=== PATIENT | female | born 1965 | race Caucasian/White ===

== ENCOUNTER 2021-04-15 11:40 | Emergency (ER) | payer SELFPAY ==
[2021-04-15 11:47] VITALS: BP 124/79; PULSE 105; RESP 16; TEMP 36.7; O2SAT 96; BMI 18.3
--- NOTE | 2021-04-15 12:07 | CT_ITS ---
WS: [id number] CT ABDOMEN AND PELVIS WITH CONTRAST HISTORY: eval RLQ abd pain TECHNIQUE: Imaging performed of the abdomen and pelvis with IV contrast. Single phase imaging of the abdomen. Coronal and sagittal reformats are submitted. All CT scans at [facility] use at [address] one of these dose optimization techniques: automated exposure control; mA and/or kV adjustment per patient size (includes targeted exams where dose is matched to clinical indication); or iterative re construction. IV CONTRAST: Omnipaque 300; 95 mL IV. Oral contrast: No DLP: 723.27 mGy.cm COMPARISON: None available. Lower thorax: Lung bases are clear. Heart is normal size. No hiatal hernia. Liver/biliary system: Normal size with no intrahepatic dilatation. Gallbladder: Normal. No gallstones or wall thickening. No pericholecystic fluid. Pancreas: Normal size pancreas and pancreatic duct. No adjacent inflammation. Spleen: Normal size spleen. No mass or infarct. Adrenal glands: Normal. Right kidney: Normal. Left kidney: Normal. Aorta: Mild atherosclerosis with no aneurysm. Calcifications extend into the common iliac arteries bi laterally. Lymphadenopathy: None. Free fluid: None. GI tract: Normal. Marked distention of the stomach with fluid and a small amount of air. Very mild hy peremia and dilatation of the proximal small bowel. No obstruction. Abdominal wall: Unremarkable abdominal wall. No hernia. Pelvis: Nondistended urinary bladder. No free fluid or adenopathy in the pelvis. Bones: Unremarkable. CT/CT abdomen pelvis w con* [id number] IMPRESSION: 1. Normal appendix. 2. Marked fluid distention of the stomach with mild increased fluid in the pro ximal small bowel with mucosal thickening. Consider very mild gastroenteritis. 3. No GI tract obstruction. 4. No renal obstruction.
[2021-04-15 12:35] LABS: Hematocrit 48.4 % (37.0-47.0); Hemoglobin 16.5 g/dL (11.5-15.3); Mean Corpuscular HGB Conc 34.1 g/dL (30.0-36.0); Mean Corpuscular Hemoglobin 32.3 pg (28.0-34.0); Mean Corpuscular Volume 94.7 fl (81-99); Mean Platelet Volume 9.3 fL (7.4-10.4); Platelet Count 352 10^3/cmm (130-400); Red Blood Count 5.11 10^6/uL (4.1-5.3); White Blood Count 10.1 10^3/uL (4.0-10.0)
[2021-04-15] MEDS: iohexol 300 mg/mL 100 mL Btl IV (12:40)
--- NOTE | 2021-04-15 12:42 | ED_ITS ---
HPI - General Adult General: Chief complaint: Abdominal Pain Stated complaint: pcp sent over w/blood count 18 Time Seen by Provider: 04/15/21 11:51 History of Present Illness: HPI narrative: Patient is 55-year-old female with history of hysterectomy presents emergency room with 1 week of worsening right lower quadrant and right flank pain. Patient went to see her primary care provider today and was found to have a white count of 18 and was told to go to the emergency room. Patient denies any history of kidney stones, dysuria, hematuria, polyuria. No new vaginal discharge or vaginal bleeding. Patient denies any nausea vomiting, decreased p.o. intake, melena or hematochezia. She has reported intermittent loose stool but denies any antibiotic use, recent travels. Onset: 1 week and 3 days ago Duration:10 days Location:home Severity: moderate Review of Systems Narrative: Constitutional: No fever, no chills. HEENT: No vision changes CV: No chest pain, no palpitations PULM: no cough, no dyspnea. GI: +R flank/RLQ abdominal pain, no N/V/D. : No dysuria MSKEL: No muscle pain SKIN: No new rashes, no lesions. NEURO: No headache, no focal weakness. HEME: No visible bruises PSYCH: Normal mood Physical Exam Narrative: EXAM NARRATIVE: Head: Atraumatic Eyes: PERRL, conjunctiva without injection ENT: Mucous membrane moist NECK: Supple, ROM intact LUNGS: LCTAB, no crackles/rhonchi CV: RRR ABDOMEN: Soft, + moderateR flank and RLQ tenderness to palpation. NO guarding rebound, guarding, rigidity. +R CVA tenderness to percussion. Neg Lopez/Neg McBurney's point tenderness, no suprabupic tenderness to palpation. EXTREMITY: Normal ROM SKIN: No rash or erythema NEURO: Awake and alert, no focal motor deficits PSYCH: Normal mood and affect Course Vital Signs: Vital signs: Vital Signs Temperature 98.1 F 04/15/21 11:47 Pulse Rate 95 04/15/21 12:52 Respiratory Rate 16 04/15/21 11:47 Blood Pressure 131/72 04/15/21 12:52 Pulse Oximetry 97 04/15/21 12:52 MDM - General Adult MDM Narrative: Medical decision making narrative: 55-year-old female presents emergency room for evaluation of leukocytosis, right-sided flank pain right lower quadrant dull pain on exam, has mild tenderness to palpation. UA is negative for any signs of UTI. CT of the pelvis did not show any signs of pyelonephritis, acute appendicitis or other emergent intra-abdominal infection. Patient is noted to have a white count 10.1 in the ER. Patient is hemodynamically stable tolerated p.o. in the emergency room without any difficulty. At the present time, do not suspect any acute intra-abdominal pathologies. Disposition: Discharge. Patient counseled regarding diagnostic impression, treatment plan. Patient given ED strict return precautions to return for continuation, worsening, or development of new symptoms. Instructed to f/u w/ PCP regarding symptoms today. Patient verbalized understanding. Lab Data: Labs: Lab Results 04/15/21 04/15/21 04/15/21 10: 12:23 12:23 WBC 10.1 10^3/uL H 10 ^3/uL (4.0-10.0) RBC 5.11 10^6/uL 10^6 /uL (4.1-5.3) Hgb 16.5 g/dL H g/dL (11.5-15.3) Hct 48.4 % H % (37.0-47.0) MCV 94.7 fl fl (81-99) MCH 32.3 pg pg (28.0-34.0) MCHC 34.1 g/dL g/dL (30.0-36.0) RDW 12.0 % L % (12.1-15.1) Plt Count 352 10^3/cmm 10^3 /cmm (130-400) MPV 9.3 fL fL (7.4-10.4) Total Counted 100 (0-100) Atypical Lymphs % 7.0 % H % (0-5) Absolute Neutrophi ls 5.9 10^3/cmm 10^3 /cmm (1.4-6.5) Segmented Neutroph ils 54 % % Abs Segm Neuts (Ma n) 5.5 10/cmm 10/cmm (1.6-7.1) Band Neutrophils 4.0 % % Abs Band Neuts (Ma n) 0.4 10^3/cmm 10^3 /cmm (0.0-1.2) Absolute Lymphocyt es 3.2 10^3/cmm 10^3 /cmm (1.2-3.4) Lymphocytes (Manua l) 25 % % Monocytes (Manual) 8.0 % % Absolute Monocytes 0.8 10^3/cmm H 10 ^3/cmm (0.1-0.6) Eosinophils (Manua l) 3 % % Absolute Eosinophi ls 0.3 10^3/cmm 10^3 /cmm (0.0-0.7) Basophils (Manual) Not Reportable Platelet Estimate Normal (Normal) Sodium 131 mmol/L L mmol /L (136-145) Potassium 4.5 mmol/L mmol/L (3.5-5.1) Chloride 91 mmol/L L mmol/ L (98-107) Carbon Dioxide 29 mmol/L mmol/L (22-29) Anion Gap 15.5 (5-19) BUN 10 mg/dL mg/dL (6-20) Creatinine 0.6 mg/dL mg/dL (0.5-0.9) GFR Calculation 104.6 mL/min mL/m in (90-130) Glucose 356 mg/dL H mg/dL (65-115) Calculated Osmolal ity 285 mOsm/kg mOsm/ kg (285-295) Calcium 10.0 mg/dL mg/dL (8.5-10.5) Total Bilirubin 0.5 mg/dL mg/dL (0.15-1.2) AST 26 U/L U/L (0-32) ALT 41 U/L H U/L (0-33) Alkaline Phosphata se 107 IU/L H IU/L (35-105) Total Protein 7.7 g/dL g/dL (6.6-8.7) Albumin 4.4 g/dL g/dL (3.5-5.2) Globulin 3.3 g/dL g/dL (1.3-4.6) Lipase 47 U/L U/L (13-60) Urine Color Dark yellow (Yellow) Urine Appearance Cloudy (CLEAR) Urine pH 5 (5-7) Ur Specific Gravit y 1.020 (1.005-1.030) Urine Protein Neg (Negative) Urine Glucose (UA) 4+ H (Normal) Urine Ketones 1+ H (Negative) Urine Blood Trace H (Negative) Urine Nitrate Negative (Negative) Urine Bilirubin 1+ H (Negative) Urine Urobilinogen 1 mg/dL H mg/dL (Negative) Ur Leukocyte Tiesha ase 2+ H (Negative) Urine RBC 5-10 /hpf H /hpf (0-2) Urine WBC 10-15 /hpf H /hpf (0-5) Ur Squamous Epith Cells 15-25 /hpf H /hpf (0-5) Amorphous Sediment Not Reportable Urine Bacteria 1+ /hpf H /hpf (NONE) Urine Mucus 2+ /hpf /hpf Urine Trichomonas 1+ /hpf H /hpf Ur Oval Fat Bodies T /hpf /hpf Imaging Data^: Other Imaging: Radiologist's impression: [facility] [place], [place] [id number] Scan ReportSigned Patient: Justo Perdomo #: [id number]: 1965Acct#:[id number]/Sex: 55 / FADM Date: 04/15/21Loc: ERRoom/Bed:Attending Dr: Ordering Provider/Ordering MD: Bety Church MD Date of Service: 04/15/21 Procedure(s): CT abdomen pelvis w con* [id number] Accession Number(s): [id number] Report Number: [id number] WS: [id number] CT ABDOMEN AND PELVIS WITH CONTRAST HISTORY: eval RLQ abd pain TECHNIQUE: Imaging performed of the abdomen and pelvis with IV contrast. Single phase imaging of the abdomen. Coronal and sagittal reformats are submitted. All CT scans at [facility] use at least one of these dose optimization techniques: automated exposure control; mA and/or kV adjustment per patient size (includes targeted exams where dose is matched to clinical indication); or iterative reconstruction. IV CONTRAST: Omnipaque 300; 95 mL IV. Oral contrast: No DLP: 723.27 mGy.cm COMPARISON: None available. Lower thorax: Lung bases are clear. Heart is normal size. No hiatal hernia. Liver/biliary system: Normal size with no intrahepatic dilatation. Gallbladder: Normal. No gallstones or wall thickening. No pericholecystic fluid. Pancreas: Normal size pancreas and pancreatic duct. No adjacent inflammation. Spleen: Normal size spleen. No mass or infarct. Adrenal glands: Normal. Right kidney: Normal. Left kidney: Normal. Aorta: Mild atherosclerosis with no aneurysm. Calcifications extend into the common iliac arteries bilaterally. Lymphadenopathy: None. Free fluid: None. GI tract: Normal. Marked distention of the stomach with fluid and a small amount of air. Very mild hyperemia and dilatation of the proximal small bowel. No obstruction. Abdominal wall: Unremarkable abdominal wall. No hernia. Pelvis: Nondistended urinary bladder. No free fluid or adenopathy in the pelvis. Bones: Unremarkable. CT/CT abdomen pelvis w con* [id number] IMPRESSION: 1. Normal appendix. 2. Marked fluid distention of the stomach with mild increased fluid in the proximal small bowel with mucosal thickening. Consider very mild gastroenteritis. 3. No GI tract obstruction. 4. No renal obstruction. Dictated By:Lisandra Miller DOSigned By:Lisandra Miller DOSigned Date/Time:04/15/21 1258DD/ 125 Discharge Plan Discharge Patient Disposition: Home Clinical Impression: Acute flank pain, Abdominal pain, RLQ Condition: Stable Prescriptions: No Action atorvastatin 80 mg tablet 80 mg PO BEDTIME RF: 0 aspirin 325 mg Tablet 325 mg PO BEDTIME RF: 0 isosorbide mononitrate 30 mg tablet extended release 24 hr 30 mg PO QAM RF: 0 carvedilol 3.125 mg tablet 3.125 mg PO BID RF: 0 Benadryl 25 mg Capsule 50 mg PO BEDTIME RF: 0 ibuprofen 200 mg Tablet 600 mg PO Q4H PRN (Reason: Pain) RF: 0 metoclopramide HCl 10 mg tablet 10 mg PO QID RF: 0 Discharge Orders: Discharge ED (Routine); Ordered 04/15/21 Ordered By: Bety Church Discharge Diet: Advance as tolerated Discharge Activity: Resume usual activity Patient Instructions: Abdominal Pain (ED), Opioid Safety Activity Restrictions/Additional Instructions: Please follow-up with your primary care provider for evaluation of your symptoms. Come back to the emergency room having nausea vomiting, abdominal pain, fever/chills, or new concerning complaints. 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
[2021-04-15 12:52] VITALS: BP 131/72; PULSE 95; O2SAT 97
[2021-04-15] MEDS: sodium chloride 0.9% 1,000 ML 999 ML IV (12:55)
[2021-04-15 13:01] LABS: Glucose Urine UA 4+ (Normal); Ketones Urine 1+ (Negative); Protein Urine Neg (Negative); Urine Appearance Cloudy (CLEAR); Urine Color Dark Yellow (Yellow); pH Urine 5 (5-7)
[2021-04-15 13:02] LABS: Add Urine Microscopic? YES; Bilirubin Urine 1+ (Negative); Blood Urine Trace (Negative); Leukocyte Esterase Urine 2+ (Negative); Nitrate Urine Negative (Negative); Urobilinogen Urine 1 mg/dL (Negative)
[2021-04-15 13:03] LABS: Squamous Epithelial Cell Urine 15-25 /hpf (0-5)
[2021-04-15 13:04] LABS: Alanine Aminotransferase 41 U/L (0-33); Albumin Level 4.4 g/dL (3.5-5.2); Alkaline Phosphatase 107 IU/L (35-105); Anion Gap 15.5 (5-19); Aspartate Amino Transferase 26 U/L (0-32); Blood Urea Nitrogen 10 mg/dL (6-20); Carbon Dioxide 29 mmol/L (22-29); Chloride 91 mmol/L (98-107); Globulin 3.3 g/dL (1.3-4.6); Glomerular Filtration Rate 104.6 mL/min (90-130); Glucose 356 mg/dL (65-115); Lipase 47 U/L (13-60); Osmolality Calculated 285 mOsm/kg (285-295); Potassium 4.5 mmol/L (3.5-5.1); Sodium 131 mmol/L (136-145); Total Bilirubin 0.5 mg/dL (0.15-1.2); Total Protein 7.7 g/dL (6.6-8.7)
[2021-04-15 13:04] LABS: Bacteria Urine 1+ /hpf; Mucus Urine 2+ /hpf; Oval Fat Bodies Urine T /hpf; Trichomonas Urine 1+ /hpf
[2021-04-15 13:05] LABS: Add Urine Culture? No
[2021-04-15 14:10] LABS: Absolute Eosinophils 0.3 10^3/cmm (0.0-0.7); Absolute Segmented Neutrophil 5.5 10/cmm (1.6-7.1); Band Neutrophils Absolute 0.4 10^3/cmm (0.0-1.2); Eosinophils 3 %; Lymphocytes 25 %; Lymphocytes Absolute 3.2 10^3/cmm (1.2-3.4); Monocytes Absolute 0.8 10^3/cmm (0.1-0.6); Segmented Neutrophils 54 %; Total Cells Counted 100 (0-100)
[2021-04-15 14:11] LABS: Absolute Neutrophil 5.9 10^3/cmm (1.4-6.5); Platelet Estimate Normal (Normal)
== END 2021-04-15 13:50 | disposition home or self-care (01) ==
PROVIDERS: Emergency Provider Emergency Medicine
DX: R10.31 Right lower quadrant pain (principal); Z79.82 Long term (current) use of aspirin
CPT/HCPCS: 74177; 80053; 81001; 83690; 85007; 85027; 96360; 99283; J7030; Q9967

== ENCOUNTER 2023-10-17 05:34 | Inpatient (IN) | payer SELFPAY ==
[2023-10-17] VITALS (25 sets, daily range): BP systolic 145–188; BP diastolic 67–126; PULSE 69–116; RESP 16–30; TEMP 36.3–37.8; O2SAT 80–98; BMI 18.7
--- NOTE | 2023-10-17 05:42 | CTR_ITS ---
PROCEDURE INFORMATION: Exam: CT Head Without Contrast Exam date and time: 10/17/2023 5:51 AM Age: 57 years old Clinical indication: Stroke-like symptoms; Altered mental status/memory loss; Additional info: Patient presents to er with acute confusion. Unable to answer questions or state name or etc. states last known well time of 2300 yesterday. TECHNIQUE: Imaging protocol: Computed tomography of the head without contrast. Radiation optimization: All CT scans at this facility use at least one of these dose optimization techniques: automated exposure control; mA and/or kV adjustment per patient size (includes targeted exams where dose is matched to clinical indication); or iterative reconstruction. Other technique: STROKE PROTOCOL was implemented. COMPARISON: No relevant prior studies available. RADIATION DOSE METRICS: Total DLP (mGy-cm): 1330.98 FINDINGS: Brain: No large territorial infarct hemorrhage mass effect or midline shift. Intracranial vascular calcification. Cerebral ventricles: No ventriculomegaly. Paranasal sinuses: Visualized sinuses are unremarkable. No fluid levels. Mastoid air cells: Visualized mastoid air cells are well aerated. Bones/joints: Unremarkable. No acute fracture. Soft tissues: Unremarkable. CT/CT head thrombolytic [id number] IMPRESSION: No acute intracranial abnormality is appreciated. ASSESSMENT: ASPECTS ([facility] Stroke Program Early CT Score) is 10.
--- NOTE | 2023-10-17 05:42 | ECG_ITS ---
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 Measurements Intervals [place] Rate: 104 P: 80 [place]: 124 QRS: -1 QRSD: 83 T: 64 QT: 349 QTc: 459 Interpretive Statements SINUS TACHYCARDIA POSSIBLE LEFT ATRIAL ENLARGEMENT [-0.1mV P-WAVE IN V1/V2] ANTERIOR MYOCARDIAL INFARCTION , OF INDETERMINATE AGE [40+ ms Q WAVE AND/OR ST/T ABNORMALITY IN V3/V4] No previous ECG available for comparison Electronically Signed On 10-17-2023 22:48:38 CDT by Mary Anne Gann M.D. [id number]
--- NOTE | 2023-10-17 05:44 | CTR_ITS ---
PROCEDURE INFORMATION: Exam: CTA Head With Contrast, Arteriography Exam date and time: 10/17/2023 5:55 AM Age: 57 years old Clinical indication: Stroke-like symptoms; Altered mental status/memory loss; Additional info: AMS TECHNIQUE: Imaging protocol: Computed tomographic angiography of the head with contrast. Exam focused on the arteries. 3D rendering (Not supervised by radiologist): MIP and/or 3D reconstructed images were created by the technologist. Radiation optimization: All CT scans at this facility use at least one of these dose optimization techniques: automated exposure control; mA and/or kV adjustment per patient size (includes targeted exams where dose is matched to clinical indication); or iterative reconstruction. Contrast material: OMNI 350; Contrast volume: 100 ml; Contrast route: INTRAVENOUS (IV); COMPARISON: CT head thrombolytic [id number] 10/17/2023 5:51 AM RADIATION DOSE METRICS: Total DLP (mGy-cm): 394.22 FINDINGS: ANTERIOR CIRCULATION: Right internal carotid artery: Intracranial segment is patent with no significant stenosis. No aneurysm. Right middle cerebral artery: No occlusion or significant stenosis. No aneurysm. Right anterior cerebral artery: No occlusion or significant stenosis. No aneurysm. Left internal carotid artery: Intracranial segment is patent with no significant stenosis. No aneurysm. Left middle cerebral artery: No occlusion or significant stenosis. No aneurysm. Left anterior cerebral artery: No occlusion or significant stenosis. No aneurysm. POSTERIOR CIRCULATION: Right vertebral artery: No occlusion or significant stenosis. No aneurysm. Left vertebral artery: No occlusion or significant stenosis. No aneurysm. Basilar artery: No occlusion or significant stenosis. No aneurysm. Right posterior cerebral artery: No occlusion or significant stenosis. No aneurysm. Left posterior cerebral artery: No occlusion or significant stenosis. No aneurysm. Brain: No definite mass, mass effect, or midline shift. Cerebral ventricles: No ventriculomegaly. Bones/joints: Unremarkable. No acute fracture. Soft tissues: Unremarkable. PROCEDURE INFORMATION: Exam: CTA Neck With Contrast Exam date and time: 10/17/2023 5:55 AM Age: 57 years old Clinical indication: Stroke-like symptoms; Altered mental status/memory loss; Additional info: AMS TECHNIQUE: Imaging protocol: Computed tomographic angiography of the neck with contrast. Exam focused on the cervical segments of the vasculature. 3D rendering (Not supervised by radiologist): MIP and/or 3D reconstructed images were created by the technologist. Radiation optimization: All CT scans at this facility use at least one of these dose optimization techniques: automated exposure control; mA and/or kV adjustment per patient size (includes targeted exams where dose is matched to clinical indication); or iterative reconstruction. Contrast material: OMNI 350; Contrast volume: 100 ml; Contrast route: INTRAVENOUS (IV); COMPARISON: CT head thrombolytic [id number] 10/17/2023 5:51 AM RADIATION DOSE METRICS: Total DLP (mGy-cm): 394.22 FINDINGS: Right common carotid artery: No stenosis. No dissection or occlusion. Moderate atherosclerotic plaque at its origin. Right internal carotid artery: No stenosis of the extracranial segment. No dissection or occlusion. Right external carotid artery: No occlusion or stenosis of the origin. Left common carotid artery: Moderate atherosclerotic plaque at its origin. Left internal carotid artery: No stenosis of the extracranial segment. No dissection or occlusion. Left external carotid artery: No occlusion or stenosis of the origin. Right vertebral artery: No stenosis. No dissection or occlusion. Left vertebral artery: No stenosis. No dissection or occlusion. Soft tissues: Normal. No significant soft tissue swelling. Bones/joints: No acute fracture. Other findings: Approximately 50% narrowing at the origin. No dissection or occlusion. CT/CT angio headneck* [id number] IMPRESSION: No large vessel stenosis or occlusion. IMPRESSION: Mild stenosis of the left ICA at its origin. REFERENCES: NASCET CRITERIA. The degree of stenosis in the cervical segment of the internal carotid artery is based on NASCET criteria. Normal is no stenosis. Mild is less than 50% stenosis. Moderate is 50-69% stenosis. Severe is 70% to 99% stenosis. Total occlusion is no detectable patent lumen.
[2023-10-17 05:57] LABS: Basophils # 0.1 10^3/uL (0.0-0.1); Basophils % 0.4 %; Eosinophils % 0.1 %; Hematocrit 41.5 % (36-47); Lymphocytes % 7.4 %; Mean Corpuscular HGB Conc 35.7 g/dL (30-55); Mean Corpuscular Hemoglobin 32.9 pg (27-33); Mean Corpuscular Volume 92.2 fl (85-98); Mean Platelet Volume 8.3 fL (7.4-10.4); Monocytes # 0.5 10^3/uL (0.2-0.9); Monocytes % 3.5 %; Neutrophils # 11.98 10^3/uL (1.8-7.7); Neutrophils % 88.1 %; Nucleated Red Blood Cells % 0 %; Platelet Count 275 10^3/cmm (157-399); White Blood Count 13.58 10^3/uL (3.29-11.43)
--- NOTE | 2023-10-17 05:58 | XRR_ITS ---
PROCEDURE INFORMATION: Exam: XR Chest Exam date and time: 10/17/2023 6:15 AM Age: 57 years old Clinical indication: Other: AMS TECHNIQUE: Imaging protocol: Radiologic exam of the chest. Views: 1 view. COMPARISON: CT angio headneck* [id number] 10/17/2023 5:55 AM FINDINGS: Lungs: Unremarkable. No consolidation. Pleural spaces: Unremarkable. No pleural effusion. No pneumothorax. Heart/Mediastinum: Unremarkable. No cardiomegaly. Bones/joints: Unremarkable. XR/XR chest 1V portable [id number] IMPRESSION: No acute findings.
--- NOTE | 2023-10-17 05:58 | ED_ITS ---
HPI - Neuro Symptoms/Deficit 2 General: Chief Complaint: Neuro Symptoms/Deficit Stated Complaint: possible stroke Time Seen by Provider: 10/17/23 05:40 Source: patient Mode of arrival: ambulatory Limitations: no limitations History of Present Illness: 57-year-old female is here with . States it went to bed at 7 PM last night manage last known normal he states he found her up this morning disoriented walking around repeating herself. Patient here will answer some my questions but then does not answer some of appropriately she has no slurred speech. She has been vomiting. Denies any pain anywhere. Associated symptoms: Reports vomiting; Deny chest pain, headache(s) or nausea Review of Systems 2 Const: Denies: fever(s), chills, body aches or change in appetite ENMT: Denies: throat pain or dental pain Card: Denies: chest pain Resp: Denies: dyspnea GI: Reports: vomiting; Denies: abdominal pain, nausea or diarrhea Musc: Denies: neck pain or back pain Skin/Breast: Denies: rash Neuro: Reports: confusion; Denies: headache(s) NIH stroke score 2 NIHSS: Level Of Consciousness - 1a: 0 Level Of Consciousness Questions - 1b: Neither Correct Level Of Consciousness Commands - 1c: Neither Correct Best Gaze - 2: Normal Visual [place] - 3: No Visual Loss Facial Palsy - 4: Normal Motor Arm Right - 5: No Drift Motor Arm Left - 5: No Drift Motor Leg Right - 6: No Drift Motor Leg Left - 6: No Drift Limb Ataxia - 7: A bsent Sensory - 8: Normal Best Language - 9: No Aphasia Dysarthia - 10: Normal Extinction And Inattention - 11: 0 Score: Total Score: 4 Physical Exam 2 Const: COMMON NORMALS: no acute distress, healthy appearing and alert; negative for patient oriented x3 EXAM LIMITATIONS: altered mental status O RIENTATION/CONSCIOUSNESS: Yes oriented to person; not oriented to place and not oriented to time HENMT: COMMON NORMALS: normocephalic and atraumatic HEAD & SCALP: n ormocephalic and atraumatic Eye: COMMON NORMALS: Equal, round and reactive pupils present and EOMs intact bilaterally PUPIL: Yes Equal, round and reactive pupils present Neck/C-Spine: COMMON NORMALS: full ROM and supple Chest: COMMONS NORMALS: normal inspection of the chest and normal palpation of entire chest wall Resp: COMMON NORMALS: normal respiratory effort, No retractions, No use of accessory muscles and clear to auscultation bilaterally AUSCULTATION: clear to auscultation bilaterally Cardio: COMMON NORMALS: regular rate, regular rhythm and No murmurs present (Cardio) RATE: regular rate RHYTHM: regular rhythm GI: COMMON NORMALS: Normal to inspection, nondistended, normoactive bowel sounds present, Soft to palpation, non-tender and no masses PALPATION: Yes Soft to palpation Extremity: COMMON NORMALS: normal to inspection and full ROM Neuro: COMMON NORMALS: moves all extremities and no focal motor deficits; negative for patient oriented x3 SENSORIUM/ORIENTATION: Yes alert, Yes oriented to person, No oriented to place and No oriented to time Psych: COMMON NORMALS: mental status grossly normal, Normal thought process present and cooperative THOUGHT PROCESS: Normal thought process present Skin: COMMON NORMALS: no rashes or lesions noted and no wounds GENERAL SKIN EXAM: no rashes or lesions noted Course 2 Vital Signs: Vital signs: Vital Signs Temperature 99.7 F H 10/17/23 05:38 Pulse Rate 103 H 10/17/23 08:10 Respiratory Rate 26 H 10/17/23 08:10 Blood Pressure 178/104 10/17/23 08:10 Pulse Oximetry 94 10/17/23 08:10 Oxygen Delivery Me thod Room Air 10/17/23 08:10 MDM - Neuro Symptoms/Deficit Medical Decision Making Patient presents here with altered mental status she also has a low-grade fever here as well she has no signs of a stroke here on her CT head or CTA her symptoms started at 11 PM she is not a lytic candidate. She also had low-grade fever did do an LP she does have mildly elevated blood count will check respiratory panel did start antibiotics and got blood cultures spoke to hospitalist will admit. Medical Records I reviewed the patient's medical records. Lab Data I reviewed the patient's lab results. 10/17/23 02:52 10/17/23 02:[address] 10/17/23 05:42 IMPRESSION: No acute intracranial abnormality is appreciated. ASSESSMENT: ASPECTS ([place] Stroke Program Early CT Score) is 10. Head/Neck CTA 10/17/23 05:44 IMPRESSION: No large vessel stenosis or occlusion. IMPRESSION: Mild stenosis of the left ICA at its origin. REFERENCES: NASCET CRITERIA. The degree of stenosis in the cervical segment of the internal carotid artery is based on NASCET criteria. Normal is no stenosis. Mild is less than 50% stenosis. Moderate is 50-69% stenosis. Severe is 70% to 99% stenosis. Total occlusion is no detectable patent lumen. Chest X-Ray 10/17/23 05:58 IMPRESSION: No acute findings. Laboratory Results WBC 13.58 10^3/uL (3.29-11.43) H 10/17/23 02:52 RBC 4.50 10^6/uL (3.85-5.65) 10/17/23 02:52 Hgb 14.80 g/dL (11.27-16.99) 10/17/23 02:52 Hct 41.5 % (36-47) 10/17/23 02:52 MCV 92.2 fl (85-98) 10/17/23 02:52 MCH 32.9 pg (27-33) 10/17/23 02:52 MCHC 35.7 g/dL (30-55) 10/17/23 02:52 RDW 12.0 % (12.1-15.1) L 10/17/23 02:52 Plt Count 275 10^3/cmm (157-399) 10/17/23 02:52 MPV 8.3 fL (7.4-10.4) 10/17/23 02:52 Neut % (Auto) 88.1 % 10/17/23 02:52 Lymph % (Auto) 7.4 % 10/17/23 02:52 Stone % (Auto) 3.5 % 10/17/23 02:52 Eos % (Auto) 0.1 % 10/17/23 02:52 Baso % (Auto) 0.4 % 10/17/23 02:52 Neut # (Auto) 11.98 10^3/uL (1.8-7.7) H 10/17/23 02:52 Lymph # (Auto) 1.0 10^3/uL (0.8-4.8) 10/17/23 02:52 Stone # (Auto) 0.5 10^3/uL (0.2-0.9) 10/17/23 02:52 Eos # (Auto) 0.0 10^3/uL (0.0-0.8) 10/17/23 02:52 Baso # (Auto) 0.1 10^3/uL (0.0-0.1) 10/17/23 02:52 Nucleated RBC % (auto) 0 % 10/17/23 02:52 Nucleated RBCs # 0.0 /100WBC 10/17/23 02:52 PT 12.90 SECONDS (12.1-14.9) 10/17/23 02:52 INR 0.95 (0.8-1.2) 10/17/23 02:52 APTT 23.3 SECONDS (23.9-36.7) L 10/17/23 02:52 Sodium 130 mmol/L (136-145) L 10/17/23 02:52 Potassium 3.3 mmol/L (3.5-5.1) L 10/17/23 02:52 Chloride 89 mmol/L (98-107) L 10/17/23 02:52 Carbon Dioxide 27 mmol/L (22-29) 10/17/23 02:52 Anion Gap 17.3 (5-19) 10/17/23 02:52 BUN 14 mg/dL (6-20) 10/17/23 02:52 Creatinine 0.7 mg/dL (0.5-0.9) 10/17/23 02:52 GFR Calculation 86.9 mL/min (90-130) L 10/17/23 02:52 Glucose 352 mg/dL (65-115) H 10/17/23 02:52 Calculated Osmolality 285 mOsm/kg (285-295) 10/17/23 02:52 Lactic Acid 1.6 mmol/L (0.5-2.2) 10/17/23 05:52 Calcium 9.4 mg/dL (8.5-10.5) 10/17/23 02:52 Total Bilirubin 0.4 mg/dL (0.15-1.2) 10/17/23 02:52 AST 16 U/L (0-32) 10/17/23 02:52 ALT 13 U/L (0-33) 10/17/23 02:52 Alkaline Phosphatase 114 U/L (35-105) H 10/17/23 02:52 Ammonia 22 umol/L (11-51) 10/17/23 05:52 Total Protein 7.9 g/dL (6.6-8.7) 10/17/23 02:52 Albumin 4.5 g/dL (3.5-5.2) 10/17/23 02:52 Globulin 3.4 g/dL (1.3-4.6) 10/17/23 02:52 TSH 0.71 uIU/mL (0.27-4.20) 10/17/23 05:52 Urine Color Yellow (Yellow) 10/17/23 06:30 Urine Appearance Cloudy (CLEAR) A 10/17/23 06:30 Urine pH 8 (5-7) H 10/17/23 06:30 Ur Specific [place] 1.010 (1.005-1.030) 10/17/23 06:30 Urine Protein 2+ (Negative) H 10/17/23 06:30 Urine Glucose (UA) 4+ (Normal) H 10/17/23 06:30 Urine Ketones 1+ (Negative) H 10/17/23 06:30 Urine Blood 3+ (Negative) H 10/17/23 06:30 Urine Nitrate Negative (Negative) 10/17/23 06:30 Urine Bilirubin Neg (Negative) 10/17/23 06:30 Prot Sulfosalicylic Acd Positive (Negative) 10/17/23 06:30 Urine Urobilinogen Neg mg/dL (Negative) 10/17/23 06:30 Ur Leukocyte Esterase Negative (Negative) 10/17/23 06:30 Urine RBC 25-40 /hpf (0-2) H 10/17/23 06:30 Urine WBC 0-4 /hpf (0-5) H 10/17/23 06:30 Ur Squamous Epith Cells 0-4 /hpf (0-5) H 10/17/23 06:30 Amorphous Sediment Not Reportable 10/17/23 06:30 Urine Bacteria Trace /hpf (NONE) 10/17/23 06:30 CSF Appearance Clear (CLEAR) 10/17/23 06:56 CSF Color Other (COLORLESS) 10/17/23 06:56 CSF WBC 7 /uL (0-5) H 10/17/23 06:56 CSF RBC 1 10^3/uL (0-0) H 10/17/23 06:56 CSF Mononuclear # Auto 0.003 10^3/uL (50-90) L 10/17/23 06:56 CSF Mononuclear WBCs % 43 % (50-90) L 10/17/23 06:56 CSF Polynuclear WBCs # 0.004 10^3/uL (0-10) 10/17/23 06:56 CSF Polynuclear WBCs % 57 % (0-10) H 10/17/23 06:56 CSF Diff Comment Yes 10/17/23 06:56 CSF Glucose 184 mg/dL (40-70) H 10/17/23 06:56 CSF Total Protein 50 mg/dL (15-45) H 10/17/23 06:56 Urine Opiates Screen Negative ng/mL (Negative) 10/17/23 06:30 Ur Barbiturates Screen Negative ng/mL (Negative) 10/17/23 06:30 Ur Phencyclidine Scrn Negative ng/mL (Negative) 10/17/23 06:30 Ur Amphetamines Screen Negative ng/mL (Negative) 10/17/23 06:30 U Benzodiazepines Scrn Negative ng/mL (Negative) 10/17/23 06:30 Urine Cocaine Screen Negative ng/mL (Negative) 10/17/23 06:30 U Marijuana (THC) Screen Positive ng/mL (Negative) H 10/17/23 06:30 Ethyl Alcohol < 10 mg/dL (0-10) 10/17/23 05:52 All radiology interpretation(s) finalized by discharge EKG Data EKG 1: I personally reviewed and interpreted this EKG as follows: EKG interpretation date: 10/17/23 EKG interpretation time: 07:08 Interpretation: sinus tach hr [address] or t wave abnormalities qrs 83 qtc 409 Discharge Plan Discharge Patient Disposition: Admitted As Inpatient Clinical Impression: Altered mental status, Fever Condition: Stable Prescriptions: No Action atorvastatin 80 mg tablet 80 mg PO BEDTIME aspirin 325 mg Tablet 325 mg PO BEDTIME isosorbide mononitrate 30 mg tablet extended release 24 hr 30 mg PO QAM carvedilol 3.125 mg tablet 3.125 mg PO BID diphenhydramine HCl [Benadryl] 25 mg Capsule 50 mg PO BEDTIME ibuprofen 200 mg Tablet 600 mg PO Q4H PRN (Reason: Pain) metoclopramide HCl 10 mg tablet 10 mg PO QID Coding Level of Care Code 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
[2023-10-17] MEDS: iohexol 350 mg/mL 500 mL Btl (per mL) IV (06:08)
[2023-10-17 06:09] LABS: INR 0.95 (0.8-1.2)
[2023-10-17 06:10] LABS: Partial Thromboplastin Time 23.3 SECONDS (23.9-36.7)
[2023-10-17 06:17] LABS: Alanine Aminotransferase 13 U/L (0-33); Albumin Level 4.5 g/dL (3.5-5.2); Alkaline Phosphatase 114 U/L (35-105); Anion Gap 17.3 (5-19); Aspartate Amino Transferase 16 U/L (0-32); Blood Urea Nitrogen 14 mg/dL (6-20); Calcium 9.4 mg/dL (8.5-10.5); Carbon Dioxide 27 mmol/L (22-29); Chloride 89 mmol/L (98-107); Creatinine Clr Calc Pharmacy 80.2382; Globulin 3.4 g/dL (1.3-4.6); Glomerular Filtration Rate 86.9 mL/min (90-130); Glucose 352 mg/dL (65-115); Osmolality Calculated 285 mOsm/kg (285-295); Potassium 3.3 mmol/L (3.5-5.1); Sodium 130 mmol/L (136-145); Total Bilirubin 0.4 mg/dL (0.15-1.2); Total Protein 7.9 g/dL (6.6-8.7)
[2023-10-17 06:20] LABS: Ammonia 22 umol/L (11-51)
[2023-10-17 06:29] LABS: Thyroid Stimulating Hormone 0.71 uIU/mL (0.27-4.20)
[2023-10-17 06:30] LABS: Lactic Sepsis W/Reflex 1.6 mmol/L (0.5-2.2)
[2023-10-17 06:31] LABS: Alcohol Level < 10 mg/dL (0-10)
[2023-10-17] MEDS: propofol 10 mg/mL SDV 20 mL 100 MG IVP (06:39)
[2023-10-17 06:46] LABS: Add Urine Culture? Yes; Add Urine Microscopic? YES; Amphetamines Screen Urine Negative (Negative); Bacteria Urine TRACE /hpf; Barbiturates Screen Urine Negative (Negative); Benzodiazepines Screen Urine Negative (Negative); Bilirubin Urine Neg (Negative); Blood Urine 3+ (Negative); Cocaine Screen Urine Negative (Negative); Glucose Urine UA 4+ (Normal); Ketones Urine 1+ (Negative); Leukocyte Esterase Urine Negative (Negative); Nitrate Urine Negative (Negative); Opiate Screen Urine Negative (Negative); PCP Screen Urine Negative (Negative); Protein Urine 2+ (Negative); RBC Urine 25-40 /hpf (0-2); Squamous Epithelial Cell Urine 0-4 /hpf (0-5); Sulfosalicylic Acid Urine Positive (Negative); THC Screen Urine Positive (Negative); Urine Appearance Cloudy (CLEAR); Urine Color Yellow (Yellow); Urobilinogen Urine Neg (Negative); WBC Urine 0-4 /hpf (0-5); pH Urine 8 (5-7)
[2023-10-17] MEDS: ondansetron 2 mg/ML SDV 2 mL 4 MG IVP (06:59)
[2023-10-17] MEDS: sodium chloride 0.9% 1,000 ML 999 ML IV ×2 (07:16→08:54)
[2023-10-17] MEDS: cefTRIAXone 2,000 MG in sodium chloride 0.9% (plus) 50 ML 100 MG IV (07:16)
[2023-10-17 07:36] LABS: CSF Mononuclear # 0.003 10^3/uL (50-90); Cyto Order Verification No Order; Mononuclear WBC CSF % 43 % (50-90); Polynuclear Cells ,CSF # 0.004 10^3/uL (0-10); Polynuclear WBC CSF % 57 % (0-10); Red Blood Cell CSF 1 10^3/uL (0-0); White Blood Cell CSF 7 /uL (0-5)
[2023-10-17 07:41] LABS: Appearance CSF CLEAR (CLEAR)
[2023-10-17 07:42] LABS: Color CSF OTHER (COLORLESS); Pathology Referral Yes
[2023-10-17 07:43] LABS: Glucose CSF 184 mg/dL (40-70); Total Protein CSF 50 mg/dL (15-45)
[2023-10-17] MEDS: LORazepam 2 mg/mL INJ 10 mL MDV 1 MG IVP (08:52)
[2023-10-17] MEDS: acetaminophen 325 mg Tablet 650 MG PO (08:54)
[2023-10-17 09:18] LABS: Adenovirus Not Detected (NOT DETECT); Chlamydia Pneumoniae Not Detected (NOT DETECT); Coronavirus 229E,HKU1,NL63,OC4 Not Detected (NOT DETECT); Human Metapneumovirus Not Detected (NOT DETECT); Human Rhinovirus/Enterovirus Not Detected (NOT DETECT); Influenza A Not Detected (NOT DETECT); Influenza A H1 Not Detected (NOT DETECT); Influenza A H1-2009 Not Detected (NOT DETECT); Influenza A H3 Not Detected (NOT DETECT); Influenza B Not Detected (NOT DETECT); Mycoplasma Pneumoniae Not Detected (NOT DETECT); Parainfluenza Virus Type 1 Not Detected (NOT DETECT); Parainfluenza Virus Type 2 Not Detected (NOT DETECT); Parainfluenza Virus Type 3 Not Detected (NOT DETECT); Parainfluenza Virus Type 4 Not Detected (NOT DETECT); Respiratory Syncytial Virus A Not Detected (NOT DETECT); Respiratory Syncytial Virus B Not Detected (NOT DETECT); SARS-COV-2 Not Detected (NOT DETECT)
--- NOTE | 2023-10-17 13:17 | MR_ITS ---
WS: [id number] MRI BRAIN WITHOUT CONTRAST HISTORY: Encephalopathy,right ear pain COMPARISON: CT 10/17/2023 TECHNIQUE: Diffusion imaging, multiplanar T1, T2 and FLAIR imaging obtained. Significant motion artifact on the majority of the sequences. The diffusion imaging is sufficient to exclude an acute infarct. There is no midline shift or significant mass effect. Small vessel ischemic disease. Ventricles are n ot dilated. The extent of the small vessel disease cannot be determined. Ventricles and extra-axial spaces are normal. No inferior displacement of cerebellar tonsils. The sella turcica and pituitary gland are unremarkabl e. Dural venous sinuses and [place] demonstrate no abnormality on this unenhanced studies. Paranasal sinuses: Not well seen. Mastoid air cells: Cannot be evaluated. Calvarium and scalp: Cannot be evaluated. MR/MR head wo con* [id number] IMPRESSION: 1. Significant motion artifact on all sequences. 2. Diffusion imaging is sufficient to exclude ischemic event. 3. There is no large hemorrhage or edema.
--- NOTE | 2023-10-17 13:23 | PM.HP ---
Providers/Chief Complaint Admitting Physician: Merrill Sears MD Chief Complaint: Possible Stoke History of Present Illness Alison Perdomo is a 57 year old female with past medical history of CAD, gastroparesis, type 2 diabetes mellitus for which she takes insulin on and off with episodes of hypoglycemia recently was brought into the ER by her today because of episode of confusion, dysarthria which developed today morning when she woke up. As per the patient did have episode of vomiting last night which they associated with her gastroparesis which is fairly common for her. Today morning when she woke up she was confused and walking around the house disoriented. Patient's was concerned for a stroke so he presented to the ER. As per the patient has not recently complained of any nausea, vomiting, diarrhea, runny nose, cough, body aches, sick contacts recently. 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 Denies any alcohol use, illicit drug abuse other than marijuana. Denies any similar complaints in the past. In the ER patient underwent CT head and CTA head and neck which were negative for acute stroke. He also underwent lumbar puncture was ruled out meningitis. Patient did have leukocytosis on blood work and had Tmax of 100 Fahrenheit on admission. On examination patient is laying comfortably in bed, fidgety, on and off trying to get out of bed, complaining of headache more so in the right ear, on and off alert to self and being in the hospital and has been but is confused. Is not able to participate in history Review of Systems General: Reports: ROS unobtainable due to mental status Medications/Allergies Home Medications Medication Instructions Recorded Confirmed Last Taken Type aspirin 325 mg tablet 325 mg PO BEDTIME 04/15/21 10/17/23 10/16/23 History atorvastatin 80 mg tablet 80 mg PO BEDTIME 04/15/21 10/17/23 04/14/21 History carvedilol 3.125 mg tablet 3.125 mg PO BID 04/15/21 10/17/23 04/15/21 08:00 History diphenhydramine HCl 25 mg capsule 50 mg PO BEDTIME 04/15/21 10/17/23 10/16/23 History (Benadryl) ibuprofen 200 mg tablet 600 mg PO Q4H PRN Pain 04/15/21 10/17/23 Unknown History isosorbide mononitrate 30 mg 30 mg PO QAM 04/15/21 10/17/23 04/15/21 08:00 History tablet,extended release 24 hr metoclopramide HCl 10 mg tablet 10 mg PO QID 04/15/21 10/17/23 10/16/23 History Allergies Allergy/AdvReac Type Severity Reaction Status Date / Time latex Allergy Unknown Verified 10/17/23 05:57 morphine Allergy Unknown Verified 10/17/23 05:57 PFSH Acute PFSH: Medical History (Updated 10/17/23 @ 16:40 by Merrill Sears MD) Hypoglycemia Type 2 diabetes mellitus CAD (coronary artery disease) Surgical History (Updated 10/17/23 @ 16:40 by Merrill Sears MD) S/P coronary artery stent placement Vitals/I&O/Wt Last Vital Signs Temp 100.0 F H 10/17/23 09:45 Pulse 99 10/17/23 09:45 Resp 16 10/17/23 09:45 BP 155/78 10/17/23 09:45 Pulse Ox 94 10/17/23 09:45 O2 Del Method Room Air 10/17/23 10:08 10/16/23 10/17/23 10/17/23 22:59 06:59 14:59 Intake Total 2049 Balance 2049 Weight last 48 hrs Weight 52.662 kg Weight 54.431 kg Physical Exam Narrative: General: AAO x 1-2, confused, fidgety HEENT: PERRLA, pupils bilaterally equal and reactive Chest: Normal vesicular breath sounds, no added sounds, equal good air entry bilaterally CVS: S1-S2 regular, no murmurs, no tachycardia, no gallops, no rubs Abdomen: Soft, nontender, no organomegaly, bowel sounds present Neuro: No focal deficits, no facial deformity, moving all limbs, able to stand up, antalgic gait Data 10/17/23 02:52 10/17/23 02:52 Micro: Microbiology 10/17/23 06:56 Gram Stain - Final Cerebrospinal Fluid 10/17/23 08:02 Blood Culture - Preliminary Blood SPECIMEN COLLECTED 10/17/23 07:28 Blood Culture - Preliminary Blood SPECIMEN COLLECTED A&P Assessment and plan (1) Altered mental status: Unknown cause. CT head and neck and CTA head and neck done in the ER ruled out acute stroke. Alcohol level negative, urine drug screen negative except marijuana. Respiratory viral panel negative. Lumbar puncture done in the ER. Shows 7 WBC, mostly mononuclear, elevated glucose and protein. Cannot rule out viral meningitis. Check MRI head, tick panel. For now empirically start patient on IV vancomycin and IV ceftriaxone along with IV doxycycline. Follow-up blood culture, urine culture and CSF cultures. Check MRSA swab. Will reconcile medication list. Patient does have Benadryl 50 mg oral which she takes nightly. Will confirm with the hospital. Will confirm with the if patient took a higher dose last night. One-to-one sitter. Fall precaution. Frequent reorientation. Aspiration precaution. Keep n.p.o. for now. IV hydration with normal saline at 50 cc/h. Complaining of headache motion of right ear pain. MRI of head will also help. Allergic to morphine. Start on Dilaudid 0.5 every 6 hours as needed. Intramuscular Haldol 1 mg every 6 hours as needed for agitation. (2) Fever: (3) Leukocytosis: (4) Type 2 diabetes mellitus: With history of recurrent hypoglycemia. Check A1c. Hypoglycemia protocol. Sliding scale ACHS low-dose protocol every 6 hour. (5) Hypokalemia: Replace with 40 mg oral. Repeat in AM. (6) Hypoglycemia: Plan History of CAD: Continue home dose of aspirin, statin, beta-alonso. Hypertension: Goal blood pressure less than 140/90 mmHg. For now continue with home dose of carvedilol and Imdur. Uptitrate for goal blood pressure. will be the DPOA. Full code. N.p.o. for now. Patient risk of aspiration. If maintains mentation will start on clear liquid diet in AM. Protonix OPD prophylaxis Heparin 5000 every 12 hourly for DVT prophylaxis. Attestations Medical Necessity Statement*: Admission for more than 2 midnights for management of altered mental status of unknown origin while meningitis is ruled out in a patient with history of type 2 diabetes mellitus with recurrent hypoglycemia Diagnoses Altered mental status R41.82 Fever R50.9 Leukocytosis D72.829 Type 2 diabetes mellitus E11.9 Hypokalemia E87.6 Hypoglycemia E16.2
[2023-10-17] MEDS: pantoprazole 40 mg SDV IVP (13:51)
[2023-10-17] MEDS: sodium chloride 0.9% 1,000 ML 50 ML IV (13:51)
[2023-10-17 14:25] LABS: Lactic Sepsis W/Reflex 1.1 mmol/L (0.5-2.2)
[2023-10-17 14:44] LABS: Procalcitonin 0.06 ng/mL (0-0.5); Thyroid Stimulating Hormone 0.52 uIU/mL (0.27-4.20); Vitamin B12 358 pg/mL (232-1245)
[2023-10-17 14:56] LABS: Iron 40 ug/dL (37-145); Percent Saturation 13.4 % (20-50); Total Iron Binding Capacity 297 mcg/dl; Unsaturated Iron Binding 257 ug/dL (112-347)
[2023-10-17 16:44] LABS: Glucose Point of Care 282 mg/dL (70-110)
[2023-10-17] MEDS: doxycycline 100 MG in sodium chloride 0.9% (plus) 100 ML IV (17:56)
[2023-10-17] MEDS: vancomycin 1,000 MG in sodium chloride 0.9% 250 ML 250 MG IV (17:59)
[2023-10-17] MEDS: carvedilol 3.125 mg Tablet PO (18:00)
[2023-10-17] MEDS: heparin 5,000 unit/mL INJ 1 mL 5000 UNIT SUBCUT (18:00)
[2023-10-17] MEDS: insulin lispro 100 unit/1 mL SUBCUT (18:03)
--- NOTE | 2023-10-17 19:55 | PC.NURSE ---
doctor ordered for sitter on this patient. due to limited staff this patient was moved into a semi-private room where a sitter, who was a nurse, was being used as a sitter and patient care nurse. patient care was turned over to that nurse at approx. 1230. this nurse attempted to give report to receiving nurse. receiving nurse refused report and stated i don't need report, i can just read it on my own. this nurse acknowledged her and made charge nurse aware.
[2023-10-17 20:45] LABS: Glucose Point of Care 217 mg/dL (70-110)
[2023-10-17] MEDS: atorvastatin 40 mg Tablet PO (21:54)
[2023-10-17 23:56] LABS: Glucose Point of Care 180 mg/dL (70-110)
[2023-10-18] VITALS (7 sets, daily range): BP systolic 128–162; BP diastolic 68–73; PULSE 73–83; RESP 18–20; TEMP 36.4–37.2; O2SAT 93–96; BMI 19.5
[2023-10-18] MEDS: doxycycline 100 MG in sodium chloride 0.9% (plus) 100 ML IV (04:22)
[2023-10-18] MEDS: acetaminophen 325 mg Tablet 650 MG PO ×2 (04:22→11:27)
[2023-10-18 04:32] LABS: Glucose Point of Care 212 mg/dL (70-110)
[2023-10-18 05:59] LABS: Basophils % 0.4 %; Eosinophils % 0.3 %; Hematocrit 42.8 % (36-47); Lymphocytes # 2.3 10^3/uL (0.8-4.8); Lymphocytes % 22.4 %; Mean Corpuscular HGB Conc 34.3 g/dL (30-55); Mean Corpuscular Volume 93.2 fl (85-98); Mean Platelet Volume 8.8 fL (7.4-10.4); Monocytes % 9.5 %; Neutrophils # 6.87 10^3/uL (1.8-7.7); Neutrophils % 67.1 %; Nucleated Red Blood Cells % 0 %; Platelet Count 269 10^3/cmm (157-399); Red Blood Count 4.59 10^6/uL (3.85-5.65); Red Cell Distribution Width 12.2 % (12.1-15.1); White Blood Count 10.23 10^3/uL (3.29-11.43)
[2023-10-18] MEDS: isosorbide mononitrate ER 30 mg Tablet PO (06:26)
[2023-10-18] MEDS: heparin 5,000 unit/mL INJ 1 mL 5000 UNIT SUBCUT ×2 (06:26→17:22)
[2023-10-18] MEDS: cefTRIAXone 2,000 MG in sodium chloride 0.9% (plus) 50 ML 100 MG IV (06:27)
[2023-10-18 06:30] LABS: Alanine Aminotransferase 21 U/L (0-33); Albumin Level 3.7 g/dL (3.5-5.2); Alkaline Phosphatase 88 U/L (35-105); Anion Gap 13.7 (5-19); Aspartate Amino Transferase 27 U/L (0-32); Blood Urea Nitrogen 11 mg/dL (6-20); Calcium 8.6 mg/dL (8.5-10.5); Carbon Dioxide 26 mmol/L (22-29); Chloride 96 mmol/L (98-107); Creatinine Clr Calc Pharmacy 115.1256; Glomerular Filtration Rate 128.1 mL/min (90-130); Glucose 188 mg/dL (65-115); Osmolality Calculated 280 mOsm/kg (285-295); Phosphorus 2.7 mg/dL (2.5-4.5); Sodium 133 mmol/L (136-145); Total Bilirubin 0.6 mg/dL (0.15-1.2); Total Protein 6.7 g/dL (6.6-8.7)
[2023-10-18 06:31] LABS: Chol HDL Ratio 5.47 mg/dL (0.0-4.40); Cholesterol 235 mg/dL (0-200); HDL Cholesterol 43 mg/dL (60-100); LDL Cholesterol Calculated 169 mg/dL (50-129); LDL HDL Ratio 3.93 RATIO (0.00-3.22); Triglycerides 115 mg/dL (0-150)
[2023-10-18 06:35] LABS: Glucose Point of Care 216 mg/dL (70-110)
[2023-10-18 06:41] LABS: Potassium 2.7 mmol/L (3.5-5.1)
[2023-10-18 06:45] LABS: Folate Level 11.9 ng/mL (4.8-37.3)
[2023-10-18 07:01] LABS: Estmated Average Glucose 192; Hemoglobin A1C 8.3 % (4.0-6.0)
--- NOTE | 2023-10-18 09:16 | PC.CHAP ---
Pastoral Care Encounter/Spiritual Assessment Type of Contact [] Declined rail car driver visit [] Patient/Family/Request visit [] Outpatient visit [] Follow-up visit [] Physician referral [] Code/Alert [x] Routine visit [] Staff referral [] Actively dying [] Patient sleeping [] Family support [] [] Out of room [] Palliative care [] [] Receiving care in room [] Pre-surgical visit [] Trauma [] Long length of stay [] ICU visit [] Other: Relational/Emotional Strength [x] Patient feels connected with others/family/visitors/staff [] Distress [] Loneliness/isolation [] Abandonment Spirituality of Patient [x] Person of Stephanie [] Attends Baptism of their Stephanie [x] Believes in Prayer [] Reads Bible or Jew materials [] There are Spiritual issues to be addressed Journeyman Level Acoustic Analyst Interventions [x] Prayer [x] Active listening [] Non-anxious presence [x] Spiritual/emotional support [] Crisis/trauma care [] Spiritual counseling [] Bereavement support [] Provided bereavement packet [] Provided Bible/devotional materials [] Provided toy/stuffed animal, coloring book to patient or family member [] Provided Communion [] Anointing/[place] [] Salvation [x] Completed spiritual assessment [] Other: Impact on Illness or Injury [] Angry [] Fearful [] Anxious [] Often cries [] Exhaustion [] Unable to work [] Unable to attend lutheran [] Unable to walk/stand [] Unable to read [] Unable to drive [] Unable to eat/drink [] Unable to sleep [] Unable to be with family [] Patient intubated [] Other: Summary Time spent with patient 5 min
[2023-10-18] MEDS: potassium chloride ER 20 mEq Tablet 40 MEQ PO (09:27)
[2023-10-18] MEDS: carvedilol 3.125 mg Tablet PO ×2 (09:28→17:23)
[2023-10-18] MEDS: aspirin 81 mg EC Tablet PO (09:28)
[2023-10-18] MEDS: vancomycin 1,000 MG in sodium chloride 0.9% 250 ML 250 MG IV (11:26)
[2023-10-18] MEDS: sodium chloride 0.9% 1,000 ML 50 ML IV (13:22)
--- NOTE | 2023-10-18 14:53 | P.PN_ITS ---
Subjective 2 Subjective: Today morning on examination patient is a lot more awake and alert. Seems to be back to her baseline. Able to have complete conversation. Yesterday had MRI but could not be done properly as patient had a lot of motion artifact. I was told that patient did not receive her Haldol for some reason prior to the test. Today patient seems to be back to his baseline mentation. Has remained hemodynamically stable and afebrile since overnight. Has been refusing her insulin with concerns for hypoglycemia but agreeable after counseling. Pleasantly Vitals/I&O/Wt Last Vital Signs Temp 97.5 F L 10/18/23 12:23 Pulse 73 10/18/23 12:23 Resp 18 10/18/23 12:23 BP 128/70 10/18/23 12:23 Pulse Ox 95 10/18/23 12:23 O2 Del Method Room Air 10/18/23 12:23 10/17/23 10/18/23 10/18/23 22:59 06:59 14:59 Intake Total 350 / 2400 100 / 2500 1540 / 1540 Balance 350 / 2400 100 / 2500 1540 / 1540 Weight last 48 hrs Weight 55.055 kg Weight 54.459 kg Weight 52.662 kg Weight 54.431 kg Physical Exam 2 Narrative: General: Pleasant, no acute distress, AO x 3 HEENT: PERRLA, pupils bilaterally equal and reactive Chest: Normal vesicular breath sounds, no added sounds, equal good air entry bilaterally CVS: S1-S2 regular, no murmurs, no tachycardia, no gallops, no rubs Abdomen: Soft, nontender, no organomegaly, bowel sounds present Neuro: No focal deficits, no facial deformity, power 5/5 all limbs, AO x 3 Data 10/18/23 04:38 10/18/23 04:38 Micro: Microbiology 10/17/23 06:56 Gram Stain - Final Cerebrospinal Fluid CSF Culture - Preliminary 10/17/23 06:30 Urine Culture - Preliminary Urine,Clean Catch 10/17/23 08:02 Blood Culture - Preliminary Blood NEGATIVE TO DATE 10/17/23 07:28 Blood Culture - Preliminary Blood NEGATIVE TO DATE A&P Assessment and plan (1) Altered mental status: Unknown cause. CT head and neck and CTA head and neck done in the ER ruled out acute stroke. Alcohol level negative, urine drug screen negative except marijuana. Respiratory viral panel negative. Lumbar puncture done in the ER. Shows 7 WBC, mostly mononuclear, elevated glucose and protein. Cannot rule out viral meningitis versus in setting of tick bite. did remove a tick from patient yesterday evening. MRI head poor study because of motion artifact but ruled out stroke. Follow-up lipid panel. Follow-up blood cultures and CSF culture. Empirically continue with IV vancomycin, IV ceftriaxone. Switch to oral doxycycline. MRSA swab pending. If negative will discontinue vancomycin. Meningitis fall now less likely. Will continue to follow-up CSF culture for 1 more day and if negative will discontinue IV ceftriaxone and vancomycin. Remove sitter. Start on carb consistent diet. Continue with aspiration precautions. IV hydration with normal saline at 50 cc/h. Start on Dilaudid 0.5 every 6 hours as needed. Intramuscular Haldol 1 mg every 6 hours as needed for agitation. (2) Fever: (3) Leukocytosis: (4) Type 2 diabetes mellitus: A1c of 8.3. History of frequent hypoglycemias. Patient is reluctant but agreeable to try insulin. Will monitor blood sugars closely. Hypoglycemia protocol. Sliding scale ACHS low-dose protocol with meals (5) Hypokalemia: Replaced yesterday. Today down to 2.7. Replace 40 mEq earlier in AM. Will additionally add 80 mEq. Repeat BMP in evening. (6) Hypoglycemia: Plan History of CAD: Continue home dose of aspirin, statin, beta-alonso. Hypertension: Goal blood pressure less than 140/90 mmHg. For now continue with home dose of carvedilol and Imdur. Uptitrate for goal blood pressure. will be the DPOA. Full code. Carb consistent diet. Protonix OPD prophylaxis Heparin 5000 every 12 hourly for DVT prophylaxis. Attestations 2 Medical Necessity Statement*: Requires further hospitalization for evaluation and management of altered mental status in a patient with concerns for tick bite, significant hypokalemia requiring aggressive replacement and monitoring. Diagnoses Altered mental status R41.82 Fever R50.9 Leukocytosis D72.829 Type 2 diabetes mellitus E11.9 Hypokalemia E87.6 Hypoglycemia E16.2
[2023-10-18] MEDS: potassium chloride ER 20 mEq Tablet 80 MEQ PO (16:07)
[2023-10-18] MEDS: pantoprazole 40 mg SDV IVP (16:18)
[2023-10-18] MEDS: doxycycline 100 mg Tablet PO (17:23)
[2023-10-18 18:30] LABS: Glucose Point of Care 151 mg/dL (70-110)
[2023-10-18 18:43] LABS: Potassium 4.1 mmol/L (3.5-5.1)
[2023-10-18] MEDS: nicotine 21 mg Patch 1 PATCH TRANSDERMA (20:46)
[2023-10-18] MEDS: atorvastatin 40 mg Tablet PO (20:46)
[2023-10-19] VITALS: BP 157/84; PULSE 75; RESP 20; TEMP 36.9; O2SAT 93
[2023-10-19] MEDS: acetaminophen 325 mg Tablet 650 MG PO (00:04)
[2023-10-19 00:10] LABS: Glucose Point of Care 122 mg/dL (70-110)
[2023-10-19 04:00] VITALS: BP 160/76; PULSE 88; RESP 20; TEMP 36.7; O2SAT 95
[2023-10-19 05:05] LABS: Basophils # 0.1 10^3/uL (0.0-0.1); Basophils % 0.9 %; Eosinophils # 0.1 10^3/uL (0.0-0.8); Eosinophils % 1.1 %; Hematocrit 40.2 % (36-47); Lymphocytes # 2.4 10^3/uL (0.8-4.8); Lymphocytes % 31.1 %; Mean Corpuscular HGB Conc 34.1 g/dL (30-55); Mean Corpuscular Hemoglobin 31.9 pg (27-33); Mean Corpuscular Volume 93.5 fl (85-98); Mean Platelet Volume 8.8 fL (7.4-10.4); Monocytes # 0.7 10^3/uL (0.2-0.9); Monocytes % 8.8 %; Neutrophils % 57.8 %; Nucleated Red Blood Cells % 0 %; Platelet Count 270 10^3/cmm (157-399); White Blood Count 7.61 10^3/uL (3.29-11.43)
[2023-10-19 05:20] LABS: Alanine Aminotransferase 22 U/L (0-33); Albumin Level 3.7 g/dL (3.5-5.2); Alkaline Phosphatase 80 U/L (35-105); Anion Gap 15.3 (5-19); Aspartate Amino Transferase 25 U/L (0-32); Blood Urea Nitrogen 10 mg/dL (6-20); Calcium 8.8 mg/dL (8.5-10.5); Carbon Dioxide 21 mmol/L (22-29); Chloride 100 mmol/L (98-107); Creatinine Clr Calc Pharmacy 117.0378; Globulin 2.9 g/dL (1.3-4.6); Glomerular Filtration Rate 128.1 mL/min (90-130); Glucose 129 mg/dL (65-115); Osmolality Calculated 275 mOsm/kg (285-295); Potassium 4.3 mmol/L (3.5-5.1); Sodium 132 mmol/L (136-145); Total Bilirubin 0.6 mg/dL (0.15-1.2); Total Protein 6.6 g/dL (6.6-8.7)
[2023-10-19] MEDS: isosorbide mononitrate ER 30 mg Tablet PO (05:28)
[2023-10-19] MEDS: vancomycin 1,000 MG in sodium chloride 0.9% 250 ML 250 MG IV (05:28)
[2023-10-19] MEDS: heparin 5,000 unit/mL INJ 1 mL 5000 UNIT SUBCUT (05:28)
[2023-10-19] MEDS: ondansetron 2 mg/ML SDV 2 mL 4 MG IVP (05:37)
[2023-10-19 06:00] VITALS: PULSE 79
[2023-10-19 06:01] LABS: Glucose Point of Care 136 mg/dL (70-110)
[2023-10-19] MEDS: cefTRIAXone 2,000 MG in sodium chloride 0.9% (plus) 50 ML 100 MG IV (06:35)
[2023-10-19 07:09] VITALS: BP 151/76; PULSE 90; RESP 15; TEMP 36.8; O2SAT 96
[2023-10-19] MEDS: doxycycline 100 mg Tablet PO (08:22)
[2023-10-19] MEDS: carvedilol 3.125 mg Tablet PO (08:23)
[2023-10-19] MEDS: sodium chloride 0.9% 1,000 ML 50 ML IV (08:23)
[2023-10-19] MEDS: nicotine 21 mg Patch 1 PATCH TRANSDERMA (08:23)
[2023-10-19] MEDS: aspirin 81 mg EC Tablet PO (08:23)
--- NOTE | 2023-10-19 10:52 | P.DS_ITS ---
Discharge Providers Date of Admission: 10/17/23 08:38 Date of Discharge: October 19, 2023 Attending Provider at Admission: Merrill Sears MD Attending Provider at Discharge: Merrill Sears MD Diagnoses at Discharge Discharge Diagnosis (1) Altered mental status: Status: Acute (2) Fever: Status: Acute (3) Leukocytosis: Status: Acute (4) Type 2 diabetes mellitus: Status: Acute (5) Hypokalemia: Status: Acute (6) Hypoglycemia: Status: Acute (7) Migraine: Status: Acute Reason for Visit Reason for Visit: [facility] Hospital Course Alison Perdomo is a 57 year old female with past medical history of CAD, gastroparesis, type 2 diabetes mellitus for which she takes insulin on and off with episodes of hypoglycemia recently was brought into the ER by her today because of episode of confusion, dysarthria which developed today morning when she woke up. As per the patient did have episode of vomiting last night which they associated with her gastroparesis which is fairly common for her. Today morning when she woke up she was confused and walking around the house disoriented. Patient's was concerned for a stroke so he presented to the ER. As per the patient has not recently complained of any nausea, vomiting, diarrhea, runny nose, cough, body aches, sick contacts recently. 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 Denies any alcohol use, illicit drug abuse other than marijuana. Denies any similar complaints in the past. On examination patient is laying comfortably in bed, fidgety, on and off trying to get out of bed, complaining of headache more so in the right ear, on and off alert to self and being in the hospital and has been but is confused. Is not able to participate in history Patient was admitted to the hospital further evaluation and management of altered mental status of unknown cause. On admission multiple studies including CT, CTA head and neck, lumbar puncture, urine drug screen were found to be negative. During hospitalization her blood culture and CSF cultures remain negative. On admission she was started empirically on IV fluids along with broad-spectrum antibiotics and treatment for tickborne infection. She was found to have few tick on her body which were removed. Patient responded well to the treatment and was back to her baseline mentation within 24 hours. For now we will restart patient's altered mental status on admission could be in the setting of tick borne infection versus complex migraine. Patient does give a remote history of migraine in the past. During hospitalization she was found to have elevated blood pressures for which her antihypertensives were adjusted. Patient has been hesitant in taking insulin because at home she has frequent episodes of hypoglycemia for which her insulin has been stopped and Januvia 100 mg daily has been started. Her A1c was checked. She has been discharged on oral doxycycline for 1 more week. She has been advised to follow-up with neurology for further evaluation and workup for migraine. Physical Exam Narrative: General: Pleasant, no acute distress, AO x 3 HEENT: PERRLA, pupils bilaterally equal and reactive Chest: Normal vesicular breath sounds, no added sounds, equal good air entry bilaterally CVS: S1-S2 regular, no murmurs, no tachycardia, no gallops, no rubs Abdomen: Soft, nontender, no organomegaly, bowel sounds present Neuro: No focal deficits, no facial deformity, power 5/5 all limbs, AO x 3 Discharge Data Studies Completed and Pending Completed Studies During Hospitalization Category Date Time Status CT head thrombolytic [id number] Stat Cat Scan 10/17/23 05:42 Completed CTA head neck [CT angio headneck* [id number]] Stat Cat Scan 10/17/23 05:44 Completed CXRP [XR chest 1V portable [id number]] Stat Exams 10/17/23 05:58 Completed MR head wo con* [id number] Stat MRI 10/17/23 13:17 Completed Pending at discharge Category Date Time Status Blood Culture Stat Lab 10/17/23 08:02 Results CSF Culture & Gram Stain Stat Lab 10/17/23 06:56 Results MRSA [Methicillin Resistant S.aureu] Routine Lab 10/17/23 16:44 Received Tick Panel Stat Lab 10/17/23 04:38 Received Vancomycin Trough Timed Lab 10/19/23 22:00 Ordered Radiology Impressions Head CT 10/17/23 05:42 IMPRESSION: No acute intracranial abnormality is appreciated. ASSESSMENT: ASPECTS ([place] Stroke Program Early CT Score) is 10. Head/Neck CTA 10/17/23 05:44 IMPRESSION: No large vessel stenosis or occlusion. IMPRESSION: Mild stenosis of the left ICA at its origin. REFERENCES: NASCET CRITERIA. The degree of stenosis in the cervical segment of the internal carotid artery is based on NASCET criteria. Normal is no stenosis. Mild is less than 50% stenosis. Moderate is 50-69% stenosis. Severe is 70% to 99% stenosis. Total occlusion is no detectable patent lumen. Chest X-Ray 10/17/23 05:58 IMPRESSION: No acute findings. Head MRI 10/17/23 13:17 IMPRESSION: 1. Significant motion artifact on all sequences. 2. Diffusion imaging is sufficient to exclude ischemic event. 3. There is no large hemorrhage or edema. Microbiology 10/17/23 06:30 Urine,Clean Catch Urine Culture - Final 10/17/23 06:56 Cerebrospinal Fluid Gram Stain - Final 10/17/23 06:56 Cerebrospinal Fluid CSF Culture - Preliminary 10/17/23 08:02 Blood Blood Culture - Preliminary NEGATIVE TO DATE 10/17/23 07:28 Blood Blood Culture - Preliminary NEGATIVE TO DATE Laboratory Results WBC 7.61 10^3/uL (3.29-11.43) 10/19/23 04:25 RBC 4.30 10^6/uL (3.85-5.65) 10/19/23 04:25 Hgb 13.70 g/dL (11.27-16.99) 10/19/23 04:25 Hct 40.2 % (36-47) 10/19/23 04:25 MCV 93.5 fl (85-98) 10/19/23 04:25 MCH 31.9 pg (27-33) 10/19/23 04:25 MCHC 34.1 g/dL (30-55) 10/19/23 04:25 RDW 12.0 % (12.1-15.1) L 10/19/23 04:25 Plt Count 270 10^3/cmm (157-399) 10/19/23 04:25 MPV 8.8 fL (7.4-10.4) 10/19/23 04:25 Neut % (Auto) 57.8 % 10/19/23 04:25 Lymph % (Auto) 31.1 % 10/19/23 04:25 [place] % (Auto) 8.8 % 10/19/23 04:25 Eos % (Auto) 1.1 % 10/19/23 04:25 Baso % (Auto) 0.9 % 10/19/23 04:25 Neut # (Auto) 4.40 10^3/uL (1.8-7.7) 10/19/23 04:25 Lymph # (Auto) 2.4 10^3/uL (0.8-4.8) 10/19/23 04:25 [place] # (Auto) 0.7 10^3/uL (0.2-0.9) 10/19/23 04:25 Eos # (Auto) 0.1 10^3/uL (0.0-0.8) 10/19/23 04:25 Baso # (Auto) 0.1 10^3/uL (0.0-0.1) 10/19/23 04:25 Nucleated RBC % (auto) 0 % 10/19/23 04:25 Nucleated RBCs # 0.0 /100WBC 10/19/23 04:25 PT 12.90 SECONDS (12.1-14.9) 10/17/23 02:52 INR 0.95 (0.8-1.2) 10/17/23 02:52 APTT 23.3 SECONDS (23.9-36.7) L 10/17/23 02:52 Sodium 132 mmol/L (136-145) L 10/19/23 04:25 Potassium 4.3 mmol/L (3.5-5.1) 10/19/23 04:25 Chloride 100 mmol/L (98-107) 10/19/23 04:25 Carbon Dioxide 21 mmol/L (22-29) L 10/19/23 04:25 Anion Gap 15.3 (5-19) 10/19/23 04:25 BUN 10 mg/dL (6-20) 10/19/23 04:25 Creatinine 0.5 mg/dL (0.5-0.9) 10/19/23 04:25 GFR Calculation 128.1 mL/min (90-130) 10/19/23 04:25 Glucose 129 mg/dL (65-115) H 10/19/23 04:25 POC Glucose 136 mg/dL (70-110) H 10/19/23 05:58 Estimat Average Glucose 192 10/18/23 04:38 Hemoglobin A1c 8.3 % (4.0-6.0) H 10/18/23 04:38 Calculated Osmolality 275 mOsm/kg (285-295) L 10/19/23 04:25 Lactic Acid 1.1 mmol/L (0.5-2.2) 10/17/23 14:04 Calcium 8.8 mg/dL (8.5-10.5) 10/19/23 04:25 Phosphorus 2.7 mg/dL (2.5-4.5) 10/18/23 04:38 Magnesium 2.0 mg/dL (1.7-2.3) 10/18/23 04:38 Iron 40 ug/dL (37-145) 10/17/23 14:04 TIBC 297 mcg/dl 10/17/23 14:04 % Saturation 13.4 % (20-50) L 10/17/23 14:04 Unsat Iron Binding 257 ug/dL (112-347) 10/17/23 14:04 Total Bilirubin 0.6 mg/dL (0.15-1.2) 10/19/23 04:25 AST 25 U/L (0-32) 10/19/23 04:25 ALT 22 U/L (0-33) 10/19/23 04:25 Alkaline Phosphatase 80 U/L (35-105) 10/19/23 04:25 Ammonia 22 umol/L (11-51) 10/17/23 05:52 Total Protein 6.6 g/dL (6.6-8.7) 10/19/23 04:25 Albumin 3.7 g/dL (3.5-5.2) 10/19/23 04:25 Globulin 2.9 g/dL (1.3-4.6) 10/19/23 04:25 Triglycerides 115 mg/dL (0-150) 10/18/23 04:38 Cholesterol 235 mg/dL (0-200) H 10/18/23 04:38 LDL Cholesterol, Calc 169 mg/dL (50-129) H 10/18/23 04:38 HDL Cholesterol 43 mg/dL (60-100) L 10/18/23 04:38 LDL/HDL Ratio 3.93 RATIO (0.00-3.22) H 10/18/23 04:38 Cholesterol/HDL Ratio 5.47 mg/dL (0.0-4.40) H 10/18/23 04:38 Vitamin B12 358 pg/mL (232-1245) 10/17/23 14:04 Folate 11.9 ng/mL (4.8-37.3) 10/18/23 04:38 Procalcitonin 0.06 ng/mL (0-0.5) 10/17/23 14:04 TSH 0.52 uIU/mL (0.27-4.20) 10/17/23 14:04 Urine Color Yellow (Yellow) 10/17/23 06:30 Urine Appearance Cloudy (CLEAR) A 10/17/23 06:30 Urine pH 8 (5-7) H 10/17/23 06:30 Ur Specific [place] 1.010 (1.005-1.030) 10/17/23 06:30 Urine Protein 2+ (Negative) H 10/17/23 06:30 Urine Glucose (UA) 4+ (Normal) H 10/17/23 06:30 Urine Ketones 1+ (Negative) H 10/17/23 06:30 Urine Blood 3+ (Negative) H 10/17/23 06:30 Urine Nitrate Negative (Negative) 10/17/23 06:30 Urine Bilirubin Neg (Negative) 10/17/23 06:30 Prot Sulfosalicylic Acd Positive (Negative) 10/17/23 06:30 Urine Urobilinogen Neg mg/dL (Negative) 10/17/23 06:30 Ur Leukocyte Esterase Negative (Negative) 10/17/23 06:30 Urine RBC 25-40 /hpf (0-2) H 10/17/23 06:30 Urine WBC 0-4 /hpf (0-5) H 10/17/23 06:30 Ur Squamous Epith Cells 0-4 /hpf (0-5) H 10/17/23 06:30 Amorphous Sediment Not Reportable 10/17/23 06:30 Urine Bacteria Trace /hpf (NONE) 10/17/23 06:30 CSF Appearance Clear (CLEAR) 10/17/23 06:56 CSF Color Other (COLORLESS) 10/17/23 06:56 CSF WBC 7 /uL (0-5) H 10/17/23 06:56 CSF RBC 1 10^3/uL (0-0) H 10/17/23 06:56 CSF Mononuclear # Auto 0.003 10^3/uL (50-90) L 10/17/23 06:56 CSF Mononuclear WBCs % 43 % (50-90) L 10/17/23 06:56 CSF Polynuclear WBCs # 0.004 10^3/uL (0-10) 10/17/23 06:56 CSF Polynuclear WBCs % 57 % (0-10) H 10/17/23 06:56 CSF Diff Comment Yes 10/17/23 06:56 CSF Glucose 184 mg/dL (40-70) H 10/17/23 06:56 CSF Total Protein 50 mg/dL (15-45) H 10/17/23 06:56 Urine Opiates Screen Negative ng/mL (Negative) 10/17/23 06:30 Ur Barbiturates Screen Negative ng/mL (Negative) 10/17/23 06:30 Ur Phencyclidine Scrn Negative ng/mL (Negative) 10/17/23 06:30 Ur Amphetamines Screen Negative ng/mL (Negative) 10/17/23 06:30 U Benzodiazepines Scrn Negative ng/mL (Negative) 10/17/23 06:30 Urine Cocaine Screen Negative ng/mL (Negative) 10/17/23 06:30 U Marijuana (THC) Screen Positive ng/mL (Negative) H 10/17/23 06:30 Ethyl Alcohol < 10 mg/dL (0-10) 10/17/23 05:52 Adenovirus (PCR) Not detected (NOT DETECT) 10/17/23 07:20 C. pneumoniae DNA (PCR) Not detected (NOT DETECT) 10/17/23 07:20 Coronavirus 229E (PCR) Not detected (NOT DETECT) 10/17/23 07:20 Human Metapneumovir PCR Not detected (NOT DETECT) 10/17/23 07:20 Influenza A (H1) PCR Not detected (NOT DETECT) 10/17/23 07:20 Influ A (H1/09) PCR Not detected (NOT DETECT) 10/17/23 07:20 Influenza A (H3) PCR Not detected (NOT DETECT) 10/17/23 07:20 Influenza Type A (PCR) Not detected (NOT DETECT) 10/17/23 07:20 Influenza Type B (PCR) Not detected (NOT DETECT) 10/17/23 07:20 M. pneumoniae (PCR) Not detected (NOT DETECT) 10/17/23 07:20 Parainfluenza 1 (PCR) Not detected (NOT DETECT) 10/17/23 07:20 Parainfluenza 2 (PCR) Not detected (NOT DETECT) 10/17/23 07:20 Parainfluenza 3 (PCR) Not detected (NOT DETECT) 10/17/23 07:20 Parainfluenza 4 (PCR) Not detected (NOT DETECT) 10/17/23 07:20 RSV Type A (PCR) Not detected (NOT DETECT) 10/17/23 07:20 RSV Type B (PCR) Not detected (NOT DETECT) 10/17/23 07:20 Entero/Rhino (PCR) Not detected (NOT DETECT) 10/17/23 07:20 SARS-CoV-2 (PCR) Not detected (NOT DETECT) 10/17/23 07:20 Vitals Last Vital Signs Temp 98.3 F 10/19/23 07:09 Pulse 90 10/19/23 07:09 Resp 15 10/19/23 07:09 BP 151/76 10/19/23 07:09 Pulse Ox 96 10/19/23 07:09 O2 Del Method Room Air 10/19/23 07:09 Discharge Plan Discharge Patient Disposition: Home Condition: Stable Prescriptions: New aspirin 81 mg Tablet,Delayed Release (Dr/Ec) 81 mg PO DAILY Qty: 30 0RF doxycycline hyclate 100 mg capsule 100 mg PO BID 7 Days Qty: 14 0RF Januvia 100 mg tablet 100 mg PO DAILY Qty: 30 0RF Continued atorvastatin 80 mg tablet 80 mg PO BEDTIME isosorbide mononitrate 30 mg tablet extended release 24 hr 30 mg PO QAM diphenhydramine HCl [Benadryl] 25 mg Capsule 50 mg PO BEDTIME metoclopramide HCl 10 mg tablet 10 mg PO QID Changed carvedilol 3.125 mg tablet 6.25 mg PO BID 30 Days Qty: 120 0RF Discontinued aspirin 325 mg Tablet 325 mg PO BEDTIME ibuprofen 200 mg Tablet 600 mg PO Q4H PRN (Reason: Pain) Discharge Orders: Discharge Order (Routine); Ordered 10/19/23 Ordered By: Merrill Sears Referrals: Maria E Rhodes [Referring] - 10/25/23 10:00 am Discharge Diet: Regular and Diabetic Discharge Activity: Resume usual activity and Increase activity as tolerated Patient Instructions: Doxycycline (By mouth), Aspirin (By mouth), Sitagliptin (By mouth) (Januvia, Zituvio), Hypoglycemia, Hypokalemia (DC), Opioid Safety Activity Restrictions/Additional Instructions: Doxycycline is the antibiotic which has been added to your medication list. Take 1 capsule twice daily for next 7 days. Dose of carvedilol has been increased to 6.25 mg twice daily. Take Januvia which is the antidiabetic medications 1 tablet daily. Please check your blood pressure daily at home and maintain a blood pressure diary and follow-up with a primary care provider on set appointment. Discharge Attestations Time Spent in Discharge Care*: greater than 30 min Quality Metrics Clinical Quality Measures [ No reported AMI, CVA or VTE this stay] Coding Level of Care Code 23837 Total time (in minutes) for Discharge: 60 Diagnoses Altered mental status R41.82 Fever R50.9 Leukocytosis D72.829 Type 2 diabetes mellitus E11.9 Hypokalemia E87.6 Hypoglycemia E16.2 Migraine G43.909
[2023-10-19 11:21] VITALS: BP 167/84; PULSE 85; RESP 15; TEMP 36.7; O2SAT 98
[2023-10-19 11:48] LABS: Glucose Point of Care 237 mg/dL (70-110)
[2023-10-19 13:39] LABS: Methicillin-Resist S.aureu PCR NOT DETECTED (NOT DETECTED)
--- NOTE | 2023-10-20 13:34 | ED_ITS ---
HPI - Neuro Symptoms/Deficit 2 General: Chief Complaint: Neuro Symptoms/Deficit Stated Complaint: possible stroke Time Seen by Provider: 10/17/23 05:40 Source: patient Mode of arrival: ambulatory Limitations: no limitations History of Present Illness: procedure note for lp performed in ER COUNT INCLUDES THE [facility] ED 2 PFSH: Medical History (Updated 10/20/23 @ 00:01 by DIMITRIOS Alcantar) Migraine Hypoglycemia Type 2 diabetes mellitus CAD (coronary artery disease) Surgical History (Updated 10/17/23 @ 16:40 by Merrill Sears MD) S/P coronary artery stent placement Procedures Lumbar Puncture Time Out Performed: Yes Patient Position: left lateral decubitus Skin Prep: Povidone-Iodine 1% Local Anesthetic: lidocaine 1% Amount of anesthesia used (mL): 5 Spinal Needle Gauge: 20G Interspace Used: L4-L5 Fluid Initially Obtained: clear Complications: none Course 2 Vital Signs: Vital signs: Vital Signs Temperature 98.1 F 10/19/23 11:21 Pulse Rate 85 10/19/23 11:21 Respiratory Rate 15 10/19/23 11:21 Blood Pressure 167/84 10/19/23 11:21 Pulse Oximetry 98 10/19/23 11:21 Oxygen Delivery Me thod Room Air 10/19/23 11:21 MDM - Neuro Symptoms/Deficit Medical Decision Making note for lp performed in ER Lab Data 10/19/23 04:25 10/19/23 04:[address] 10/17/23 05:42 IMPRESSION: No acute intracranial abnormality is appreciated. ASSESSMENT: ASPECTS ([place] Stroke Program Early CT Score) is 10. Head/Neck CTA 10/17/23 05:44 IMPRESSION: No large vessel stenosis or occlusion. IMPRESSION: Mild stenosis of the left ICA at its origin. REFERENCES: NASCET CRITERIA. The degree of stenosis in the cervical segment of the internal carotid artery is based on NASCET criteria. Normal is no stenosis. Mild is less than 50% stenosis. Moderate is 50-69% stenosis. Severe is 70% to 99% stenosis. Total occlusion is no detectable patent lumen. Chest X-Ray 10/17/23 05:58 IMPRESSION: No acute findings. Head MRI 10/17/23 13:17 IMPRESSION: 1. Significant motion artifact on all sequences. 2. Diffusion imaging is sufficient to exclude ischemic event. 3. There is no large hemorrhage or edema. Laboratory Results WBC 13.58 10^3/uL (3.29-11.43) H 10/17/23 02:52 RBC 4.50 10^6/uL (3.85-5.65) 10/17/23 02:52 Hgb 14.80 g/dL (11.27-16.99) 10/17/23 02:52 Hct 41.5 % (36-47) 10/17/23 02:52 MCV 92.2 fl (85-98) 10/17/23 02:52 MCH 32.9 pg (27-33) 10/17/23 02:52 MCHC 35.7 g/dL (30-55) 10/17/23 02:52 RDW 12.0 % (12.1-15.1) L 10/17/23 02:52 Plt Count 275 10^3/cmm (157-399) 10/17/23 02:52 MPV 8.3 fL (7.4-10.4) 10/17/23 02:52 Neut % (Auto) 88.1 % 10/17/23 02:52 Lymph % (Auto) 7.4 % 10/17/23 02:52 [place] % (Auto) 3.5 % 10/17/23 02:52 Eos % (Auto) 0.1 % 10/17/23 02:52 Baso % (Auto) 0.4 % 10/17/23 02:52 Neut # (Auto) 11.98 10^3/uL (1.8-7.7) H 10/17/23 02:52 Lymph # (Auto) 1.0 10^3/uL (0.8-4.8) 10/17/23 02:52 [place] # (Auto) 0.5 10^3/uL (0.2-0.9) 10/17/23 02:52 Eos # (Auto) 0.0 10^3/uL (0.0-0.8) 10/17/23 02:52 Baso # (Auto) 0.1 10^3/uL (0.0-0.1) 10/17/23 02:52 Nucleated RBC % (auto) 0 % 10/17/23 02:52 Nucleated RBCs # 0.0 /100WBC 10/17/23 02:52 PT 12.90 SECONDS (12.1-14.9) 10/17/23 02:52 INR 0.95 (0.8-1.2) 10/17/23 02:52 APTT 23.3 SECONDS (23.9-36.7) L 10/17/23 02:52 Sodium 130 mmol/L (136-145) L 10/17/23 02:52 Potassium 3.3 mmol/L (3.5-5.1) L 10/17/23 02:52 Chloride 89 mmol/L (98-107) L 10/17/23 02:52 Carbon Dioxide 27 mmol/L (22-29) 10/17/23 02:52 Anion Gap 17.3 (5-19) 10/17/23 02:52 BUN 14 mg/dL (6-20) 10/17/23 02:52 Creatinine 0.7 mg/dL (0.5-0.9) 10/17/23 02:52 GFR Calculation 86.9 mL/min (90-130) L 10/17/23 02:52 Glucose 352 mg/dL (65-115) H 10/17/23 02:52 Calculated Osmolality 285 mOsm/kg (285-295) 10/17/23 02:52 Lactic Acid 1.6 mmol/L (0.5-2.2) 10/17/23 05:52 Calcium 9.4 mg/dL (8.5-10.5) 10/17/23 02:52 Total Bilirubin 0.4 mg/dL (0.15-1.2) 10/17/23 02:52 AST 16 U/L (0-32) 10/17/23 02:52 ALT 13 U/L (0-33) 10/17/23 02:52 Alkaline Phosphatase 114 U/L (35-105) H 10/17/23 02:52 Ammonia 22 umol/L (11-51) 10/17/23 05:52 Total Protein 7.9 g/dL (6.6-8.7) 10/17/23 02:52 Albumin 4.5 g/dL (3.5-5.2) 10/17/23 02:52 Globulin 3.4 g/dL (1.3-4.6) 10/17/23 02:52 TSH 0.71 uIU/mL (0.27-4.20) 10/17/23 05:52 Urine Color Yellow (Yellow) 10/17/23 06:30 Urine Appearance Cloudy (CLEAR) A 10/17/23 06:30 Urine pH 8 (5-7) H 10/17/23 06:30 Ur Specific [place] 1.010 (1.005-1.030) 10/17/23 06:30 Urine Protein 2+ (Negative) H 10/17/23 06:30 Urine Glucose (UA) 4+ (Normal) H 10/17/23 06:30 Urine Ketones 1+ (Negative) H 10/17/23 06:30 Urine Blood 3+ (Negative) H 10/17/23 06:30 Urine Nitrate Negative (Negative) 10/17/23 06:30 Urine Bilirubin Neg (Negative) 10/17/23 06:30 Prot Sulfosalicylic Acd Positive (Negative) 10/17/23 06:30 Urine Urobilinogen Neg mg/dL (Negative) 10/17/23 06:30 Ur Leukocyte Esterase Negative (Negative) 10/17/23 06:30 Urine RBC 25-40 /hpf (0-2) H 10/17/23 06:30 Urine WBC 0-4 /hpf (0-5) H 10/17/23 06:30 Ur Squamous Epith Cells 0-4 /hpf (0-5) H 10/17/23 06:30 Amorphous Sediment Not Reportable 10/17/23 06:30 Urine Bacteria Trace /hpf (NONE) 10/17/23 06:30 CSF Appearance Clear (CLEAR) 10/17/23 06:56 CSF Color Other (COLORLESS) 10/17/23 06:56 CSF WBC 7 /uL (0-5) H 10/17/23 06:56 CSF RBC 1 10^3/uL (0-0) H 10/17/23 06:56 CSF Mononuclear # Auto 0.003 10^3/uL (50-90) L 10/17/23 06:56 CSF Mononuclear WBCs % 43 % (50-90) L 10/17/23 06:56 CSF Polynuclear WBCs # 0.004 10^3/uL (0-10) 10/17/23 06:56 CSF Polynuclear WBCs % 57 % (0-10) H 10/17/23 06:56 CSF Diff Comment Yes 10/17/23 06:56 CSF Glucose 184 mg/dL (40-70) H 10/17/23 06:56 CSF Total Protein 50 mg/dL (15-45) H 10/17/23 06:56 Urine Opiates Screen Negative ng/mL (Negative) 10/17/23 06:30 Ur Barbiturates Screen Negative ng/mL (Negative) 10/17/23 06:30 Ur Phencyclidine Scrn Negative ng/mL (Negative) 10/17/23 06:30 Ur Amphetamines Screen Negative ng/mL (Negative) 10/17/23 06:30 U Benzodiazepines Scrn Negative ng/mL (Negative) 10/17/23 06:30 Urine Cocaine Screen Negative ng/mL (Negative) 10/17/23 06:30 U Marijuana (THC) Screen Positive ng/mL (Negative) H 10/17/23 06:30 Ethyl Alcohol < 10 mg/dL (0-10) 10/17/23 05:52 Adenovirus (PCR) Not detected (NOT DETECT) 10/17/23 07:20 Lyme Ab (Western Blot) Not Reportable 10/17/23 04:38 C. pneumoniae DNA (PCR) Not detected (NOT DETECT) 10/17/23 07:20 Coronavirus 229E (PCR) Not detected (NOT DETECT) 10/17/23 07:20 Human Metapneumovir PCR Not detected (NOT DETECT) 10/17/23 07:20 Influenza A (H1) PCR Not detected (NOT DETECT) 10/17/23 07:20 Influ A (H1/09) PCR Not detected (NOT DETECT) 10/17/23 07:20 Influenza A (H3) PCR Not detected (NOT DETECT) 10/17/23 07:20 Influenza Type A (PCR) Not detected (NOT DETECT) 10/17/23 07:20 Influenza Type B (PCR) Not detected (NOT DETECT) 10/17/23 07:20 M. pneumoniae (PCR) Not detected (NOT DETECT) 10/17/23 07:20 Parainfluenza 1 (PCR) Not detected (NOT DETECT) 10/17/23 07:20 Parainfluenza 2 (PCR) Not detected (NOT DETECT) 10/17/23 07:20 Parainfluenza 3 (PCR) Not detected (NOT DETECT) 10/17/23 07:20 Parainfluenza 4 (PCR) Not detected (NOT DETECT) 10/17/23 07:20 RSV Type A (PCR) Not detected (NOT DETECT) 10/17/23 07:20 RSV Type B (PCR) Not detected (NOT DETECT) 10/17/23 07:20 Entero/Rhino (PCR) Not detected (NOT DETECT) 10/17/23 07:20 SARS-CoV-2 (PCR) Not detected (NOT DETECT) 10/17/23 07:20 No radiology studies performed this visit Discharge Plan Discharge Patient Disposition: Admitted As Inpatient Admit Provider: Merrill Sears Clinical Impression: Altered mental status, Fever Condition: Stable Discharge Diet: Regular and Diabetic Discharge Activity: Resume usual activity and Increase activity as tolerated Coding Level of Care Code ED Cement Patcher for Taylor De Leon
[2023-10-20 13:41] LABS: Lyme AB IGG, Blot NEGATIVE (NEGATIVE)
[2023-10-24 17:39] LABS: E. Chaffeensis AB IGG <1:64; E. Chaffeensis AB IGM <1:20
[2023-10-25 16:40] LABS: RMSF IGG NOT DETECTED; RMSF IGM NOT DETECTED
== END 2023-10-19 13:16 | disposition home or self-care (01) | DRG 641 ==
LOC: ER 08:17 → MEDSURG 08:39
PROVIDERS: Emergency Medicine; Admitting Provider Student in an Organized Health Care Education/Training Program; Emergency Provider Emergency Medicine; Visit Provider Student in an Organized Health Care Education/Training Program
DX: E87.6 Hypokalemia (principal); R41.82 Altered mental status, unspecified; R50.9 Fever, unspecified; D72.829 Elevated white blood cell count, unspecified; T14.8XXA Other injury of unspecified body region, initial encounter; Y99.9 Unspecified external cause status; H92.01 Otalgia, right ear; E11.43 Type 2 diabetes mellitus with diabetic autonomic (poly)neuropathy; K31.84 Gastroparesis; I10 Essential (primary) hypertension; Z79.82 Long term (current) use of aspirin; I25.10 Atherosclerotic heart disease of native coronary artery without angina pectoris; Z95.5 Presence of coronary angioplasty implant and graft; G43.909 Migraine, unspecified, not intractable, without status migrainosus
CPT/HCPCS: 36415; 36416; 62270; 70450; 70496; 70498; 70551; 71045; 80053; 80061; 80306; 80307; 80503; 81001; 82140; 82607; 82746; 82945; 82962; 83036; 83540; 83550; 83605; 83735; 84100; 84132; 84145; 84157; 84443; 85025; 85610; 85730; 86618; 86666; 86757; 87040; 87070; 87075; 87086; 87205; 87486; 87581; 87633; 87641; 89050; 93005; 94664; 94799; 96365; 96372; 96375; 99285; C9113; J0696; J1644; J1815; J2060; J2405; J2704; J3370; J3490; J7030; J7050; Q9967